=== PATIENT | female | born 1990 | race Two or more races ===

== ENCOUNTER 2021-08-05 09:40 | Observation (INO) | payer MEDICAID, OTHER ==
[2021-08-05 10:47] LABS: Basophils # (auto) 0.1 10 ^3/uL (0-0.2); Basophils % (auto) 1.2 % (0.0-2.0); Eosinophils # (auto) 0.3 10 ^3/uL (0-0.8); Hematocrit 34.2 % (36.0-46.0); Hemoglobin 11.7 g/dL (12.2-16.2); Lymphocytes # (auto) 1.8 10 ^3/uL (0.4-5.4); Lymphocytes % (auto) 20.9 % (10.0-50.0); Mean Corpuscular Hemoglobin 30.4 pg (28.0-32.0); Mean Corpuscular Hgb Conc. 34.3 g/dL (32.0-36.0); Mean Corpuscular Volume 88.6 fL (80.0-100.0); Monocytes # (auto) 0.9 10 ^3/uL (0-1.3); Monocytes % (auto) 10.9 % (0.0-12.0); Neutrophils # (auto) 5.4 10 ^3/uL (1.6-8.6); Nucleated Red Blood Cells % 0.1 %; Red Blood Cells 3.85 10^6/uL (4.0-5.20); White Blood Cell 8.4 10^3/uL (4.4-10.8)
[2021-08-05 10:56] LABS: Urine Bacteria FEW /hpf (None Seen); Urine Blood Negative /uL (Negative); Urine Specific Gravity 1.008 (1.001-1.035); Urine WBC 1 /hpf (0 - 5)
[2021-08-05 11:09] LABS: INR 0.94 (0.9-1.15); Partial Thromboplastin Time 24.7 sec (23.6-33.0)
[2021-08-05 11:15] LABS: Albumin 2.3 g/dL (3.4-5.0); Calcium 9.1 mg/dL (8.5-10.1); Potassium 3.9 mmol/L (3.5-5.1)
[2021-08-05 11:18] LABS: Alcohol, Urine < 3.0 mg/dL (0-10); Amphetamine Screen, Urine NEGATIVE (NEGATIVE); Barbiturate Scree,Urine NEGATIVE (NEGATIVE); Benzodiazephine Screen, Urine NEGATIVE (NEGATIVE); Cannabinoid Screen, Urine NEGATIVE (NEGATIVE); Cocaine Screen, Urine NEGATIVE (NEGATIVE); Opiate Scree,Urine NEGATIVE (NEGATIVE); Phencyclidine Screen, Urine NEGATIVE (NEGATIVE)
[2021-08-05 11:18] LABS: BUN/Creatinine Ratio 9.3; Bilirubin, Total 0.1 mg/dL (0.2-1.0); Total Protein 6.7 g/dL (6.4-8.2); Uric Acid 4.1 mg/dL (2.6-6.0)
[2021-08-05 11:20] LABS: Protein, Urine 10.9 mg/dL (0.0-11.9)
[2021-08-05] MEDS ORDERED: CHOL20007 PO (12:40)
[2021-08-05] MEDS ORDERED: ASPI-543 PO (12:40)
[2021-08-05] MEDS ORDERED: PREN-96 PO (12:40)
[2021-08-06 06:25] LABS: RPR Non Reactive (Non Reactive)
[2021-08-06 07:06] LABS: Rubella Antibodies, IgG 3.39 index (Immune >0.99)
== END 2021-08-05 12:52 | disposition home or self-care (01) ==
LOC: LDRP 09:40
PROVIDERS: ADMIT Obstetrics & Gynecology; ATTEND Obstetrics & Gynecology
DX: O13.3 Gestational [pregnancy-induced] hypertension without significant proteinuria, third trimester (principal); O26.893 Other specified pregnancy related conditions, third trimester; R20.2 Paresthesia of skin; O99.283 Endocrine, nutritional and metabolic diseases complicating pregnancy, third trimester; E05.90 Thyrotoxicosis, unspecified without thyrotoxic crisis or storm; Z3A.32 32 weeks gestation of pregnancy; Z79.899 Other long term (current) drug therapy
CPT/HCPCS: 36415; 59025; 80053; 80307; 81001; 81002; 82570; 84156; 84550; 85025; 85379; 85610; 85730; 86592; 86703; 86762; 86850; 86900; 86901; 87340; 94760; G0378

== ENCOUNTER 2021-08-19 10:53 | Observation (INO) | payer MEDICAID ==
[~2021-08-19] VITALS: Ht 160 cm; Wt 85.7 kg
[~2021-08-19 10:53] MED LIST: ASPI-543 PO; CHOL20007 PO; PREN-96 PO
[2021-08-19 11:47] LABS: Basophils # (auto) 0.1 10 ^3/uL (0-0.2); Basophils % (auto) 1.4 % (0.0-2.0); Eosinophils # (auto) 0.2 10 ^3/uL (0-0.8); Eosinophils % (auto) 2.1 % (0.0-7.0); Hematocrit 35.8 % (36.0-46.0); Hemoglobin 12.2 g/dL (12.2-16.2); Lymphocytes # (auto) 1.6 10 ^3/uL (0.4-5.4); Lymphocytes % (auto) 21.1 % (10.0-50.0); Mean Corpuscular Hemoglobin 30.8 pg (28.0-32.0); Mean Corpuscular Volume 90.5 fL (80.0-100.0); Monocytes # (auto) 0.8 10 ^3/uL (0-1.3); Monocytes % (auto) 11.1 % (0.0-12.0); Neutrophils # (auto) 4.9 10 ^3/uL (1.6-8.6); Neutrophils % (auto) 64.3 % (37.0-80.0); Red Blood Cells 3.95 10^6/uL (4.0-5.20); Red Cell Distribution Width 15.5 % (11.8-14.3); White Blood Cell 7.7 10^3/uL (4.4-10.8)
[2021-08-19 11:52] LABS: Urine Bacteria NONE SEEN /hpf (None Seen); Urine Blood Negative /uL (Negative); Urine Specific Gravity 1.011 (1.001-1.035); Urine WBC <1 /hpf (0 - 5)
[2021-08-19 11:59] LABS: Alcohol, Urine < 3.0 mg/dL (0-10); Amphetamine Screen, Urine NEGATIVE (NEGATIVE); Barbiturate Scree,Urine NEGATIVE (NEGATIVE); Benzodiazephine Screen, Urine NEGATIVE (NEGATIVE); Cannabinoid Screen, Urine NEGATIVE (NEGATIVE); Cocaine Screen, Urine NEGATIVE (NEGATIVE); Opiate Scree,Urine NEGATIVE (NEGATIVE); Phencyclidine Screen, Urine NEGATIVE (NEGATIVE); Protein, Urine 16.9 mg/dL (0.0-11.9)
[2021-08-19 12:01] LABS: INR 0.92 (0.9-1.15); Partial Thromboplastin Time 24.9 sec (23.6-33.0)
[2021-08-19 12:03] LABS: Albumin 2.3 g/dL (3.4-5.0); Calcium 8.3 mg/dL (8.5-10.1); Potassium 4.1 mmol/L (3.5-5.1)
[2021-08-19 12:07] LABS: BUN/Creatinine Ratio 12.5; Bilirubin, Total 0.2 mg/dL (0.2-1.0); Total Protein 6.9 g/dL (6.4-8.2)
[2021-08-19] MEDS ORDERED: BETAMETHASONE ACET (30mg/5ml) 5ml Vial 6mg/ml IM ONE (12:45)
[2021-08-19] MEDS ORDERED: LABETALOL HCL 200 MG TAB PO ONE (12:45)
[2021-08-19] MEDS: TERBUTALINE SULFATE 1 MG/ML 1ML VIAL SC SCH ×3 (13:23→14:17)
[2021-08-19] MEDS ORDERED: NIFEdipine 10 MG CAP PO ONE (14:45)
[2021-08-19] MEDS ORDERED: NIF10C PO (15:25)
[2021-08-19] MEDS ORDERED: LABE200T7 PO (15:25)
== END 2021-08-19 17:29 | disposition home or self-care (01) ==
LOC: LDRP 10:53
PROVIDERS: ADMIT Obstetrics & Gynecology; ATTEND Obstetrics & Gynecology
DX: O60.03 Preterm labor without delivery, third trimester (principal); O13.3 Gestational [pregnancy-induced] hypertension without significant proteinuria, third trimester; Z3A.34 34 weeks gestation of pregnancy; Z79.899 Other long term (current) drug therapy
CPT/HCPCS: 36415; 59025; 80053; 80307; 81001; 81002; 82570; 84156; 84550; 85025; 85610; 85730; 94760; 96372; G0378; J0702; J3105

== ENCOUNTER 2021-08-20 08:13 | Observation (INO) | payer MEDICAID ==
[~2021-08-20] VITALS: Ht 160 cm; Wt 81.6 kg
[~2021-08-20 08:13] MED LIST changes: +LABE200T7 PO; +NIF10C PO
[2021-08-20] MEDS ORDERED: BETAMETHASONE ACET (30mg/5ml) 5ml Vial 6mg/ml IM ONE (13:15)
== END 2021-08-20 14:45 | disposition home or self-care (01) ==
LOC: LDRP 13:08
PROVIDERS: ADMIT Obstetrics & Gynecology; ATTEND Obstetrics & Gynecology
DX: O60.03 Preterm labor without delivery, third trimester (principal); O26.893 Other specified pregnancy related conditions, third trimester; R03.0 Elevated blood-pressure reading, without diagnosis of hypertension; Z3A.35 35 weeks gestation of pregnancy
CPT/HCPCS: 59025; 81002; 94760; 96372; G0378

== ENCOUNTER 2021-08-24 07:53 | Observation (INO) | payer MEDICAID ==
[2021-08-24 15:15] LABS: Protein, Urine 10.6 mg/dL (0.0-11.9)
[2021-08-24 15:40] LABS: 24 Hr. Total Protein, Urine 503.5 mg/24 Hr (<149.1)
== END 2021-08-24 15:31 | disposition home or self-care (01) ==
LOC: LDRP 13:42
PROVIDERS: ADMIT Obstetrics & Gynecology; ATTEND Obstetrics & Gynecology
DX: O13.3 Gestational [pregnancy-induced] hypertension without significant proteinuria, third trimester (principal); O26.893 Other specified pregnancy related conditions, third trimester; R33.9 Retention of urine, unspecified; R60.0 Localized edema; Z3A.35 35 weeks gestation of pregnancy
CPT/HCPCS: 59025; 81002; 84156; 94760; G0378

== ENCOUNTER 2021-08-31 14:30 | Observation (INO) | payer MEDICAID ==
[~2021-08-31 14:30] MED LIST changes: -ASPI-543 PO
== END 2021-08-31 17:02 | disposition home or self-care (01) ==
LOC: LDRP 14:30
PROVIDERS: ADMIT Obstetrics & Gynecology; ATTEND Obstetrics & Gynecology
DX: O60.03 Preterm labor without delivery, third trimester (principal); O13.3 Gestational [pregnancy-induced] hypertension without significant proteinuria, third trimester; Z3A.36 36 weeks gestation of pregnancy
CPT/HCPCS: 59025; 76818; 81002; 94760; G0378

== ENCOUNTER 2021-09-03 07:08 | Observation (INO) | payer MEDICAID | END 2021-09-03 16:48 | disposition home or self-care (01) | LOC: LDRP 15:12 | PROVIDERS: ADMIT Obstetrics & Gynecology; ATTEND Obstetrics & Gynecology | DX: O13.3 Gestational [pregnancy-induced] hypertension without significant proteinuria, third trimester (principal); O60.03 Preterm labor without delivery, third trimester; O26.893 Other specified pregnancy related conditions, third trimester; R10.9 Unspecified abdominal pain; Z3A.37 37 weeks gestation of pregnancy | CPT/HCPCS: 59025; 81002; 94760; G0378 ==

== ENCOUNTER 2021-09-07 08:06 | Observation (INO) | payer MEDICAID ==
[2021-09-07 16:16] LABS: Basophils # (auto) 0.2 10 ^3/uL (0-0.2); Basophils % (auto) 2.1 % (0.0-2.0); Eosinophils # (auto) 0.2 10 ^3/uL (0-0.8); Eosinophils % (auto) 2.2 % (0.0-7.0); Hematocrit 38.4 % (36.0-46.0); Hemoglobin 13.1 g/dL (12.2-16.2); Lymphocytes # (auto) 1.8 10 ^3/uL (0.4-5.4); Lymphocytes % (auto) 23.4 % (10.0-50.0); Mean Corpuscular Hemoglobin 30.9 pg (28.0-32.0); Mean Corpuscular Hgb Conc. 34.2 g/dL (32.0-36.0); Mean Corpuscular Volume 90.3 fL (80.0-100.0); Monocytes # (auto) 0.5 10 ^3/uL (0-1.3); Monocytes % (auto) 6.9 % (0.0-12.0); Neutrophils % (auto) 65.4 % (37.0-80.0); Red Blood Cells 4.25 10^6/uL (4.0-5.20); White Blood Cell 7.6 10^3/uL (4.4-10.8)
[2021-09-07 16:31] LABS: INR 0.89 (0.9-1.15); Partial Thromboplastin Time 25.1 sec (23.6-33.0)
[2021-09-07 16:41] LABS: Albumin 2.4 g/dL (3.4-5.0); Calcium 8.7 mg/dL (8.5-10.1); Potassium 4.1 mmol/L (3.5-5.1)
[2021-09-07 16:45] LABS: BUN/Creatinine Ratio 14.5; Bilirubin, Total 0.2 mg/dL (0.2-1.0); Total Protein 7.2 g/dL (6.4-8.2); Uric Acid 4.1 mg/dL (2.6-6.0)
[2021-09-07 16:59] LABS: Protein, Urine 7.8 mg/dL (0.0-11.9)
== END 2021-09-07 16:41 | disposition home or self-care (01) ==
LOC: LDRP 14:03
PROVIDERS: ADMIT Obstetrics & Gynecology; ATTEND Obstetrics & Gynecology
DX: O60.03 Preterm labor without delivery, third trimester (principal); O13.3 Gestational [pregnancy-induced] hypertension without significant proteinuria, third trimester; Z3A.37 37 weeks gestation of pregnancy
CPT/HCPCS: 36415; 59025; 76818; 80053; 81002; 82570; 84156; 84550; 85025; 85610; 85730; 94760; G0378

== ENCOUNTER 2021-09-08 19:00 | Observation (INO) | payer MEDICAID ==
[~2021-09-08] VITALS: Ht 157.5 cm; Wt 81.6 kg
[2021-09-08 19:48] LABS: Urine Bacteria NONE SEEN /hpf (None Seen); Urine Blood Negative /uL (Negative); Urine Specific Gravity 1.013 (1.001-1.035); Urine WBC 1 /hpf (0 - 5)
[2021-09-08 20:09] LABS: Protein, Urine 32.8 mg/dL (0.0-11.9)
[2021-09-08 20:14] LABS: Protein, Urine 32.8 mg/dL (0.0-11.9)
[2021-09-08] MEDS ORDERED: LABETALOL HCL 200 MG TAB PO ONE (21:15)
[2021-09-08] MEDS ORDERED: hydrALAZINE HCL 20 MG/ML VL IV ONE (23:30)
[2021-09-08] MEDS ORDERED: hydrALAZINE HCL 20 MG/ML VL ONE (23:35)
[2021-09-09 00:46] LABS: Albumin 2.4 g/dL (3.4-5.0); BUN/Creatinine Ratio 12.3; Calcium 8.6 mg/dL (8.5-10.1); Potassium 3.9 mmol/L (3.5-5.1)
[2021-09-09 00:48] LABS: INR 0.9 (0.9-1.15); Partial Thromboplastin Time 25.3 sec (23.6-33.0)
[2021-09-09 00:49] LABS: Bilirubin, Total 0.2 mg/dL (0.2-1.0); Total Protein 6.9 g/dL (6.4-8.2)
[2021-09-09 01:03] LABS: Basophils # (auto) 0.1 10 ^3/uL (0-0.2); Basophils % (auto) 0.8 % (0.0-2.0); Eosinophils # (auto) 0.2 10 ^3/uL (0-0.8); Eosinophils % (auto) 2.5 % (0.0-7.0); Hematocrit 37.7 % (36.0-46.0); Hemoglobin 12.8 g/dL (12.2-16.2); Lymphocytes # (auto) 2.4 10 ^3/uL (0.4-5.4); Mean Corpuscular Hemoglobin 30.7 pg (28.0-32.0); Mean Corpuscular Volume 90.2 fL (80.0-100.0); Monocytes # (auto) 0.6 10 ^3/uL (0-1.3); Monocytes % (auto) 7.8 % (0.0-12.0); Neutrophils # (auto) 4.6 10 ^3/uL (1.6-8.6); Neutrophils % (auto) 57.9 % (37.0-80.0); Nucleated Red Blood Cells % 0.1 %; Red Blood Cells 4.18 10^6/uL (4.0-5.20); Red Cell Distribution Width 14.9 % (11.8-14.3); White Blood Cell 7.9 10^3/uL (4.4-10.8)
[2021-09-09 01:15] LABS: Uric Acid 4.1 mg/dL (2.6-6.0)
[2021-09-09] MEDS ORDERED: LABETALOL HCL 200 MG TAB PO SCH (09:00)
== END 2021-09-09 10:46 | disposition home or self-care (01) ==
LOC: LDRP 19:00
PROVIDERS: ADMIT Obstetrics & Gynecology; ATTEND Obstetrics & Gynecology
DX: O13.3 Gestational [pregnancy-induced] hypertension without significant proteinuria, third trimester (principal); Z3A.37 37 weeks gestation of pregnancy
CPT/HCPCS: 36415; 59025; 80053; 81001; 81002; 82570; 84156; 84550; 85025; 85610; 85730; 94760; 96374; G0378; J0360

== ENCOUNTER 2021-09-09 21:00 | Inpatient (IN) | payer MEDICAID ==
[~2021-09-09] VITALS: Ht 154.9 cm; Wt 74.8 kg
[2021-09-09] MEDS ORDERED: WITCH HAZEL-GLYCERIN PAD TOP PRN (22:45)
[2021-09-09] MEDS ORDERED: DERMOPLAST 60ML BOTTLE TOP PRN (22:45)
[2021-09-09] MEDS ORDERED: BUTORPHANOL TARTRATE 2 MG/1 ML VIAL IV PRN ×2 (22:45)
[2021-09-09] MEDS ORDERED: PHISODERM TOP SOLN 240ML BTL TOP PRN (22:45)
[2021-09-09] MEDS ORDERED: LIDOCAINE 2%HCL (LOCAL ANESTH.) INJ 10ml MDV IJ PRN (22:45)
[2021-09-09] MEDS ORDERED: PROMETHAZINE HCL 25 MG/ML 1ML IV PRN (22:45)
[2021-09-09 23:17] LABS: Basophils # (auto) 0.1 10 ^3/uL (0-0.2); Basophils % (auto) 0.8 % (0.0-2.0); Eosinophils # (auto) 0.2 10 ^3/uL (0-0.8); Eosinophils % (auto) 2.7 % (0.0-7.0); Hematocrit 34.1 % (36.0-46.0); Hemoglobin 11.9 g/dL (12.2-16.2); Lymphocytes # (auto) 2.1 10 ^3/uL (0.4-5.4); Lymphocytes % (auto) 28.2 % (10.0-50.0); Mean Corpuscular Hgb Conc. 34.8 g/dL (32.0-36.0); Monocytes # (auto) 0.7 10 ^3/uL (0-1.3); Monocytes % (auto) 8.9 % (0.0-12.0); Neutrophils # (auto) 4.5 10 ^3/uL (1.6-8.6); Neutrophils % (auto) 59.4 % (37.0-80.0); Nucleated Red Blood Cells % 0.1 %; Red Blood Cells 3.83 10^6/uL (4.0-5.20); Red Cell Distribution Width 15.2 % (11.8-14.3); White Blood Cell 7.6 10^3/uL (4.4-10.8)
[2021-09-09 23:37] LABS: INR 0.93 (0.9-1.15); Partial Thromboplastin Time 25.3 sec (23.6-33.0)
[2021-09-09 23:39] LABS: Albumin 2.4 g/dL (3.4-5.0); BUN/Creatinine Ratio 18.2; Calcium 8.4 mg/dL (8.5-10.1)
[2021-09-09 23:42] LABS: Bilirubin, Total 0.3 mg/dL (0.2-1.0); Total Protein 6.5 g/dL (6.4-8.2)
[2021-09-10] MEDS: miSOPROStol 50 MCG per PRE-CUT 1/2 TAB PO PRN ×4 (01:15→14:33)
[2021-09-10] MEDS: LACTATED RINGER'S 1,000 ML IV SCH ×3 (01:17→20:19)
[2021-09-10 04:48] LABS: Urine Bacteria NONE SEEN /hpf (None Seen); Urine Blood Negative /uL (Negative); Urine Specific Gravity 1.009 (1.001-1.035); Urine WBC <1 /hpf (0 - 5)
[2021-09-10 04:55] LABS: Amphetamine Screen, Urine NEGATIVE (NEGATIVE); Barbiturate Scree,Urine NEGATIVE (NEGATIVE); Benzodiazephine Screen, Urine NEGATIVE (NEGATIVE); Cannabinoid Screen, Urine NEGATIVE (NEGATIVE); Cocaine Screen, Urine NEGATIVE (NEGATIVE); Opiate Scree,Urine NEGATIVE (NEGATIVE); Phencyclidine Screen, Urine NEGATIVE (NEGATIVE)
[2021-09-10] MEDS: LABETALOL HCL 200 MG TAB PO SCH ×2 (07:18→19:27)
[2021-09-10] MEDS ORDERED: hydrALAZINE HCL 20 MG/ML VL IV PRN (11:30)
[2021-09-10] MEDS: hydrALAZINE HCL 20 MG/ML VL IV PRN (11:42)
[2021-09-11] MEDS: miSOPROStol 50 MCG per PRE-CUT 1/2 TAB PO PRN ×2 (02:23→22:25)
[2021-09-11] MEDS: LACTATED RINGER'S 1,000 ML IV SCH ×3 (06:21→22:45)
[2021-09-11 07:06] LABS: RPR Non Reactive (Non Reactive)
[2021-09-11] MEDS: LABETALOL HCL 200 MG TAB PO SCH ×2 (08:26→20:16)
[2021-09-11 08:53] LABS: Basophils # (auto) 0.1 10 ^3/uL (0-0.2); Basophils % (auto) 0.8 % (0.0-2.0); Eosinophils # (auto) 0.2 10 ^3/uL (0-0.8); Eosinophils % (auto) 2.7 % (0.0-7.0); Hematocrit 35.4 % (36.0-46.0); Hemoglobin 12.2 g/dL (12.2-16.2); Lymphocytes # (auto) 2.2 10 ^3/uL (0.4-5.4); Lymphocytes % (auto) 27.2 % (10.0-50.0); Mean Corpuscular Hgb Conc. 34.3 g/dL (32.0-36.0); Mean Corpuscular Volume 90.3 fL (80.0-100.0); Monocytes # (auto) 0.7 10 ^3/uL (0-1.3); Monocytes % (auto) 8.9 % (0.0-12.0); Neutrophils # (auto) 4.8 10 ^3/uL (1.6-8.6); Neutrophils % (auto) 60.4 % (37.0-80.0); Nucleated Red Blood Cells % 0.1 %; Red Blood Cells 3.92 10^6/uL (4.0-5.20); Red Cell Distribution Width 15.1 % (11.8-14.3)
[2021-09-11 09:09] LABS: Calcium 8.5 mg/dL (8.5-10.1); Potassium 3.8 mmol/L (3.5-5.1)
[2021-09-11 09:17] LABS: Albumin 2.2 g/dL (3.4-5.0); BUN/Creatinine Ratio 15.3; Bilirubin, Total 0.4 mg/dL (0.2-1.0); Total Protein 6.3 g/dL (6.4-8.2); Uric Acid 5.4 mg/dL (2.6-6.0)
[2021-09-11 10:01] LABS: Urine Bacteria NONE SEEN /hpf (None Seen); Urine Blood Negative /uL (Negative); Urine WBC 3 /hpf (0 - 5)
[2021-09-11 10:07] LABS: INR 0.94 (0.9-1.15); Partial Thromboplastin Time 25.7 sec (23.6-33.0)
[2021-09-11 10:16] LABS: Protein, Urine 24.6 mg/dL (0.0-11.9)
[2021-09-11] MEDS: hydrALAZINE HCL 20 MG/ML VL IV PRN (23:34)
[2021-09-12] MEDS ORDERED: ACETAMINOPHEN 325 MG TAB PO PRN
[2021-09-12] MEDS: miSOPROStol 50 MCG per PRE-CUT 1/2 TAB PO PRN ×2 (02:56→07:03)
[2021-09-12] MEDS: LACTATED RINGER'S 1,000 ML IV SCH ×4 (06:27→17:57)
[2021-09-12] MEDS: LABETALOL HCL 200 MG TAB PO SCH ×2 (07:49→20:24)
[2021-09-12] MEDS ORDERED: DINOPROSTONE 10MG VAG SUPP PV ONE (10:45)
[2021-09-13] MEDS: LABETALOL HCL 200 MG TAB PO SCH (08:42)
[2021-09-13] MEDS ORDERED: LACT. RINGERS/OXYTOCIN 20UNITS 1,000 ML IV SCH (09:00)
[2021-09-13] MEDS ORDERED: TERBUTALINE SULFATE 1 MG/ML 1ML VIAL SC PRN (09:00)
[2021-09-13] MEDS: LACTATED RINGER'S 1,000 ML IV SCH ×3 (11:03→22:45)
[2021-09-13] MEDS ORDERED: LORazepam 2MG/ML-1ML VIAL IV ONE (12:30)
[2021-09-13] MEDS ORDERED: MAGNESIUM SULFATE 40MG/ML 1,000 ML IV SCH (12:30)
[2021-09-13] MEDS ORDERED: MAGNESIUM SULFATE 100 ML IV ONE (12:30)
[2021-09-13] MEDS ORDERED: TETRACAINE 1% INJ 2 ML VIAL IJ ONE (15:29)
[2021-09-13] MEDS ORDERED: SUCCINYLCHOLINE CHLORIDE 20 MG/ML 10ML VIAL IV ONE (15:29)
[2021-09-13] MEDS ORDERED: MIDAZOLAM HCL 2MG/2ML 2ml VIAL (1mg/ml) IV ONE (15:30)
[2021-09-13] MEDS ORDERED: SODIUM CHLORIDE LOCK 10 ML ONE (15:31)
[2021-09-13] MEDS ORDERED: ONDANSETRON HCL 4 MG/2 ML VIAL ONE (15:31)
[2021-09-13] MEDS ORDERED: oxyTOCIN 10 UNIT/ML 10ML VIAL ONE (15:31)
[2021-09-13] MEDS ORDERED: MORPHINE SULF PF 5 MG/10 ML VIAL ONE (15:31)
[2021-09-13] MEDS ORDERED: DexAMETHasone SOD PHOS 10MG/1ML VIAL INJ ONE (15:31)
[2021-09-13] MEDS ORDERED: ePHEDrine SULFATE 50 MG/ML AMP ONE (15:31)
[2021-09-13] MEDS ORDERED: fentaNYL CITRATE 100 MCG/2 ML VL ONE (15:31)
[2021-09-13] MEDS ORDERED: MIDAZOLAM HCL 2MG/2ML 2ml VIAL (1mg/ml) ONE (15:31)
[2021-09-13] MEDS ORDERED: ceFAZolin 1GM/50ML 50 ML IV ONE ×3 (15:41→17:15)
[2021-09-13] MEDS ORDERED: MORPHINE SULFATE 4 MG/ML SYR/VIAL IV PRN (16:45)
[2021-09-13] MEDS ORDERED: diphenhdrAMINE HCL 50 MG/1 ML VL IV PRN (16:45)
[2021-09-13] MEDS ORDERED: METOCLOPRAMIDE HCL 5MG/ml INJ 2ml VIAL IV PRN (16:45)
[2021-09-13] MEDS ORDERED: NALOXONE HCL 0.4 MG/ML VIAL IV PRN (16:45)
[2021-09-13] MEDS ORDERED: HYDROmorphone HCL 2 MG/ML VL/or syr IV PRN (16:45)
[2021-09-13] MEDS ORDERED: ONDANSETRON HCL 4 MG/2 ML VIAL IV PRN (17:15)
[2021-09-13] MEDS ORDERED: ePHEDrine SULFATE 50 MG/ML AMP IV PRN (17:15)
[2021-09-13] MEDS ORDERED: KETOROLAC TROMETH 30 MG/ML 1ML VIAL IV PRN (17:15)
[2021-09-13] MEDS ORDERED: GUM (CHEWING) 1 GUM CHEW CHEW ONE (17:15)
[2021-09-13] MEDS: MAGNESIUM SULFATE 40MG/ML 1,000 ML IV SCH (20:29)
[2021-09-13] MEDS: DOCUSATE SOD 100 MG CAP PO SCH (22:55)
[2021-09-13 23:00] VITALS: BP 141/67
[2021-09-14] VITALS (12 sets, daily range): BP systolic 119–141; BP diastolic 73–90
[2021-09-14] MEDS: IBUPROFEN 600 MG TAB PO SCH ×3 (05:48→17:40)
[2021-09-14] MEDS ORDERED: HYDROcodone-ACET 5/325MG TAB PO PRN (06:00)
[2021-09-14] MEDS ORDERED: HYDR-4902 PO (06:14)
[2021-09-14] MEDS ORDERED: DOCU100C10 PO (06:14)
[2021-09-14] MEDS ORDERED: IBU600T PO (06:14)
[2021-09-14] MEDS: LACTATED RINGER'S 1,000 ML IV SCH ×2 (06:45→14:45)
[2021-09-14 07:13] LABS: Basophils # (auto) 0 10 ^3/uL (0-0.2); Basophils % (auto) 0.2 % (0.0-2.0); Eosinophils # (auto) 0 10 ^3/uL (0-0.8); Hemoglobin 11.6 g/dL (12.2-16.2); Lymphocytes # (auto) 1.4 10 ^3/uL (0.4-5.4); Lymphocytes % (auto) 11.6 % (10.0-50.0); Mean Corpuscular Hemoglobin 30.6 pg (28.0-32.0); Mean Corpuscular Volume 89.9 fL (80.0-100.0); Monocytes % (auto) 8.3 % (0.0-12.0); Neutrophils # (auto) 9.6 10 ^3/uL (1.6-8.6); Neutrophils % (auto) 79.9 % (37.0-80.0); Red Blood Cells 3.78 10^6/uL (4.0-5.20); Red Cell Distribution Width 14.5 % (11.8-14.3)
[2021-09-14] MEDS: LABETALOL HCL 200 MG TAB PO SCH ×2 (08:59→19:50)
[2021-09-14] MEDS: MAGNESIUM SULFATE 40MG/ML 1,000 ML IV SCH (16:15)
[2021-09-14] MEDS: DOCUSATE SOD 100 MG CAP PO SCH (22:03)
[2021-09-15] MEDS: IBUPROFEN 600 MG TAB PO SCH ×4 (00:12→18:06)
[2021-09-15 03:17] VITALS: BP 139/85
[2021-09-15 07:30] VITALS: BP_SYST 153; BP_DIAS 104; BP_DIAS 4
[2021-09-15] MEDS: LABETALOL HCL 200 MG TAB PO SCH ×2 (08:01→19:30)
[2021-09-15 11:19] VITALS: BP 125/82
[2021-09-15 14:51] VITALS: BP 127/90
[2021-09-15 19:30] VITALS: BP 122/81
[2021-09-15] MEDS: DOCUSATE SOD 100 MG CAP PO SCH (22:00)
[2021-09-15 23:00] VITALS: BP 147/91
[2021-09-16] VITALS (9 sets, daily range): BP systolic 135–157; BP diastolic 81–101
[2021-09-16] MEDS: SIMETHICONE 80 MG CHEWABLE TABLET PO PRN (01:50)
[2021-09-16] MEDS: LABETALOL HCL 200 MG TAB PO SCH ×2 (01:52→14:00)
[2021-09-16] MEDS: HYDROcodone-ACET 5/325MG TAB PO PRN ×2 (07:58→16:10)
[2021-09-16] MEDS: IBUPROFEN 600 MG TAB PO SCH ×4 (08:00→17:57)
[2021-09-16] MEDS ORDERED: LABE200T32 PO (10:21)
[2021-09-16] MEDS: hydrALAZINE HCL 20 MG/ML VL IV PRN ×3 (21:50→23:47)
[2021-09-16] MEDS: DOCUSATE SOD 100 MG CAP PO SCH (22:26)
[2021-09-17] VITALS (7 sets, daily range): BP systolic 132–155; BP diastolic 86–104
[2021-09-17] MEDS: IBUPROFEN 600 MG TAB PO SCH ×5 (00:03→23:36)
[2021-09-17] MEDS ORDERED: LABETALOL HCL 200 MG TAB PO SCH (02:00)
[2021-09-17] MEDS: SIMETHICONE 80 MG CHEWABLE TABLET PO PRN (06:29)
[2021-09-17] MEDS: hydrALAZINE HCL 20 MG/ML VL IV PRN (08:23)
[2021-09-17] MEDS ORDERED: cloNIDine HCL 0.1 MG TAB PO PRN (09:45)
[2021-09-17] MEDS ORDERED: NIFEdipine ER 30 MG TAB PO SCH (10:00)
[2021-09-17] MEDS ORDERED: amLODIPine BESYLATE 5 MG TAB PO SCH (10:00)
[2021-09-17] MEDS ORDERED: hydrALAZINE HCL 25 MG TAB PO SCH (14:00)
[2021-09-17] MEDS: LABETALOL HCL 200 MG TAB PO SCH ×2 (14:01→23:46)
[2021-09-17] MEDS: HYDROcodone-ACET 5/325MG TAB PO PRN (21:57)
[2021-09-17] MEDS: DOCUSATE SOD 100 MG CAP PO SCH (21:57)
[2021-09-17] MEDS: NIFEdipine ER 30 MG TAB PO SCH (21:57)
[2021-09-18 00:48] VITALS: BP 132/84
[2021-09-18 03:30] VITALS: BP 132/80
[2021-09-18] MEDS: IBUPROFEN 600 MG TAB PO SCH (05:37)
[2021-09-18 08:00] VITALS: BP 132/80
[2021-09-18] MEDS: NIFEdipine ER 30 MG TAB PO SCH (09:32)
[2021-09-18] MEDS ORDERED: methIMAzole 5 MG TAB PO SCH ×2 (10:00)
[2021-09-18] MEDS: LABETALOL HCL 200 MG TAB PO SCH (11:37)
== END 2021-09-18 11:50 | disposition home or self-care (01) | DRG 540 ==
LOC: LDRP 21:00 → OBSVTOIN 22:00
PROVIDERS: ADMIT Obstetrics & Gynecology; ATTEND Obstetrics & Gynecology
PROC: 3E0P7VZ Introduction of Hormone into Female Reproductive, Via Natural or Artificial Opening (ICD-10-PCS; 2021-09-10)
PROC: 3E0DXGC Introduction of Other Therapeutic Substance into Mouth and Pharynx, External Approach (ICD-10-PCS; 2021-09-10)
PROC: 10D00Z1 Extraction of Products of Conception, Low, Open Approach (ICD-10-PCS; principal; 2021-09-13 15:55)
DX: O14.94 Unspecified pre-eclampsia, complicating childbirth (principal); O61.9 Failed induction of labor, unspecified; O13.4 Gestational [pregnancy-induced] hypertension without significant proteinuria, complicating childbirth; O77.0 Labor and delivery complicated by meconium in amniotic fluid; O99.02 Anemia complicating childbirth; O76 Abnormality in fetal heart rate and rhythm complicating labor and delivery; Z20.822 Contact with and (suspected) exposure to COVID-19; Z3A.38 38 weeks gestation of pregnancy; Z37.0 Single live birth
CPT/HCPCS: 36415; 59025; 80053; 80307; 81001; 81002; 82570; 82948; 83735; 84156; 84443; 84550; 85025; 85384; 85610; 85730; 86592; 86850; 86900; 86901; 94760; 94762; 96360; 96361; 96365; 96366; 96374; 96375; G0378; J0330; J0690; J1100; J2001; J2250; J2405; J2590

== ENCOUNTER 2022-07-13 17:45 | Emergency (ER) | payer MEDICAID ==
[~2022-07-13] VITALS: Ht 154.9 cm; Wt 75.0 kg
[~2022-07-13 17:45] MED LIST changes: +DOCU100C10 PO; +HYDR-4902 PO; +IBU600T PO; +LABE200T32 PO; -LABE200T7 PO; -NIF10C PO
[2022-07-13 18:15] VITALS: BP 137/89
[2022-07-13] MEDS ORDERED: DexAMETHasone SOD PHOS 10MG/1ML VIAL INJ IM ONE ×2 (18:30→22:15)
[2022-07-13] MEDS ORDERED: PENICILLIN G BENZ 1200000 UNITS/2 ML SYRG IM ONE ×2 (18:30→22:15)
[2022-07-13] MEDS ORDERED: IBUP800T26 PO (21:35)
== END 2022-07-14 00:26 | disposition home or self-care (01) ==
LOC: ER 17:45
DX: J02.0 Streptococcal pharyngitis (principal); E66.9 Obesity, unspecified; Z68.31 Body mass index [BMI] 31.0-31.9, adult
CPT/HCPCS: 96372; 99284; J0561; J1100

== ENCOUNTER 2025-03-02 07:18 | Emergency (ER) | payer MEDICAID ==
[~2025-03-02] VITALS: Ht 157.5 cm; Wt 75.2 kg
[~2025-03-02 07:18] MED LIST changes: +DOCU-265 PO; -DOCU100C10 PO; +IBUP-1455 PO; -LABE200T32 PO; +LABE200T9 PO
--- NOTE | 2025-03-02 07:30 | ED.PDOC ---
HPI Comments 34 y/o F, presents to the ED for CC of chest pain. Patient states, she has been experiencing left-sided non-radiating chest pain onset, yesterday (03/01/25). Patient relays, to have associated shortness of breath upon inspiration. Patient denies nausea, vomiting, dizziness, or headache. No other symptoms or modifying factors are present at this time. Chief Complaint: Chest Pain Time Seen by MD: 07:30 Reviewed Notes: Nurses Notes, Medications, Allergies Allergies: Coded Allergies: NO KNOWN ALLERGIES (Unverified , 08/05/21) Home Meds Active Scripts Ibuprofen Micronized (MOTRIN TABLET) 600 Mg Tb, 600 MG PO TID PRN for 3 Days, #9 TAB *Black box warning-NSAIDS can increase risk of [place] & hypertension, GI irritation, ulceration, bleed, perferation. Do not use post cardiac surgery. Use short duration/lowest effective dose. Prov:SYBIL JIMENEZ MD 03/02/25 Ibuprofen Micronized (Ibuprofen) 800 Mg Tab, 800 MG PO Q8HP PRN, #20 TAB Prov:MONIQUE GALE 07/13/22 Ibuprofen Micronized (MOTRIN TABLET) 600 Mg Tb, 600 MG PO Q6HR PRN, #20 TAB Prov:BLAYNE DALE DO 09/14/21 Hydrocodone-Acetaminophen (Hydrocodone Bitartrate/AC 5-325 mg) 1 Tab Tab, 1 TAB PO Q6HPRN PRN, #15 TAB Prov:BLAYNE DALE DO 09/14/21 Docusate Sodium (Docusate Sodium) 100 Mg Cap, 100 MG PO HS, #30 CAP Prov:BLAYNE DALE DO 09/14/21 Reported Medications Labetalol HCl (Labetalol Hydrochloride) 200 Mg Tab, 200 MG PO Q12HR, #60 TAB 09/16/21 Vit W/ Ferrous Fumara ( One Daily) Daily Tab, 1 TAB PO DAILY, #90 TAB 3 Refills 08/05/21 Cholecalciferol (VITAMIN D3) 2,000 Unit Tab, 1 TAB PO DAILY, #30 TAB 5 Refills 08/05/21 Information Source: Patient Mode of Arrival: Ambulatory Severity: Moderate Timing: Days Duration: Since onset Prehospital treatment: None Location: Chest (L) Radiation: No Radiation Onset: At Rest Cardiac Risk Factors: None PE Risk Factors: None History of: None Modifying Factors: Nothing Associated Signs and Symptoms: SOB Past Medical History PAST MEDICAL HISTORY: Denies Surgical History: HAND UPPER AND BOTTOM LACER History: No Pertinent HAND UPPER AND BOTTOM LACER History Family History Family History: Reviewed,noncontributory to illness, No family hx of Cancer, No family hx of DM, No family hx of Heart nemo, No family hx of HTN, No family hx ofKidney nemo, No family hx of Liver nemo, No family hx of Lung nemo, No family hx of Stroke Social History Smoker: Non-Smoker Alcohol: Denies ETOH Use Drugs: Denies Drug Use Lives In: Home Constitutional: denies: chills, diaphoresis, fatigue, fever, malaise, sweats, w eakness, others EENTM: denies: blurred vision, double vision, ear bleeding, ear discharge, ear drainage, ear pain, ear ringing, eye pain, eye redness, hearing loss, mouth pain, mouth swelling, nasal discharge, nose bleeding, nose congestion, nose pain, photophobia, tearing, throat pain, throat swelling, voice changes, others Respiratory: reports: shortness of breath; denies: cough, hemoptysis, orthopnea, SOB at rest, SOB with excertion, stridor, wheezing, others Cardiovascular: reports: chest pain; denies: dizzy spells, diaphoresis, Dyspnea on exertion, edema, irregular heart beat, left arm pain, lightheadedness, palpitations, PND, syncope, others Gastrointestinal: denies: abdomen distended, abdominal pain, blood streaked bowels, constipated, diarrhea, dysphagia, difficulty swallowing, hematemesis, melena, nausea, poor appetite, poor fluid intake, rectal bleeding, rectal pain, vomiting, others Genitourinary: denies: abnormal vagina bleeding, burning, dyspareunia, dysuria, flank pain, frequency, hematuria, incontinence, pain, , vagina discharge, urgency, others Neurological: denies: dizziness, fainting, headache, left sided numbness, left sided weakness, numbness, paresthesia, pre-existing deficit, right sided numbness, right sided weakness, seizure, speech problems, tingling, tremors, weakness, others Musculoskeletal: denies: back pain, gout, joint pain, joint swelling, muscle pain, muscle stiffness, neck pain, others Integumetry: denies: bruises, change in color, change in hair/nails, dryness, laceration, lesions, lumps, rash, wounds, others Allergic/Immunocompromised: denies: Difficulty Healing, Frequent Infections, Hives, Itching, others Hematologic/Lymphatic: denies: anemia, blood clots, easy bleeding, easy bruising, swollen glands, others Endocrine: denies: excessive hunger, excessive sweating, excessive thirst, excessive urination, flushing, intolerance to cold, intolerance to heat, unexplained weight gain, unexplained weight loss, others Psychiatric: denies: anxiety, bipolar disorder, depression, hopeless, panic disorder, schizophrenia, sleepless, suicidal, others All Other Systems: Reviewed and Negative Physical Exam General Appearance: Moderate Distress HEENT: Normal ENT Inspection, Pharynx Normal, TMs Normal Neck: Full Range of Motion, Non-Tender, Normal, Normal Inspection Respiratory: Chest Non-Tender, Lungs Clear, No Accessory Muscle Use, No Respiratory Distress, Normal Breath Sounds Cardiovascular: No Edema, No JVD, No Murmur, No Gallop, Normal Peripheral Pulses, Regular Rate/Rhythm Breast Exam: Deferred Gastrointestinal: No Organomegaly, Non Tender, No Pulsatile Mass, Normal Bowel Sounds, Soft Genitalia: Deferred Pelvic: Deferred Rectal: Deferred Extremities: No calf tenderness, Normal capillary refill, Normal inspection, Normal range of motion, Non-tender, No pedal edema Musculoskeletal : Apperance: Normal Neurologic: Alert, territory account representative II-XII nml as Tested, No Motor Deficits, Normal Affect, Normal Mood, No Sensory Deficits Cerebellar Function: Normal Reflexes: Normal Skin: Dry, Normal Color, Warm Peripheral Pulses: 3+ Radial (R), 3+ Radial (L) Lymphatic: No Adenopathy EKG EKG : Pulse Rate (adult): 79 [place]: Normal Cardiac Rhythm: NSR Block: None Hypertrophy: None ST: Normal Was a procedure done? Was a procedure done?: No CP Differential Dx Differential Diagnosis: A-fib, A-Flutter, Angina, Anxiety / Panic Attack, Atrial Dysrhythmia, Electrolyte Disorder X-Ray, Labs, Meds, VS Vital Signs Date Time Temp Pulse Resp B/P (MAP) Pulse Ox O2 Delivery O2 Flow Rate FiO2 03/02/25 11:09 69 16 99 Room Air 03/02/25 11:09 98.7 69 16 120/80 (93) 99 98.7 03/02/25 08:39 68 03/02/25 07:51 79 03/02/25 07:27 79 03/02/25 07:18 98.1 79 18 138/98 98 98.1 Lab Test 03/02/25 08:52 03/02/25 07:52 Range/Units Troponin I High Sensitivity 3 L 3 L </=34 ng/L White Blood Count 6.9 4.4-10.8 10^3/uL Red Blood Count 4.98 4.0-5.20 10^6/uL Hemoglobin 14.8 12.2-16.2 g/dL Hematocrit 43.5 36.0-46.0 % Mean Corpuscular Volume 87.2 80.0-100.0 fL Mean Corpuscular Hemoglobin 29.7 28.0-32.0 pg Mean Corpuscular Hemoglobin Concent 34.0 32.0-36.0 g/dL Red Cell Distribution Width 13.9 11.8-14.3 % Platelet Count 327 140-450 10^3/uL Mean Platelet Volume 8.5 6.9-10.8 fL Neutrophils (%) (Auto) 49.0 37.0-80.0 % Lymphocytes (%) (Auto) 37.5 10.0-50.0 % Monocytes (%) (Auto) 8.5 0.0-12.0 % Eosinophils (%) (Auto) 3.6 0.0-7.0 % Basophils (%) (Auto) 1.4 0.0-2.0 % Neutrophils # (Auto) 3.4 1.6-8.6 10 ^3/uL Lymphocytes # (Auto) 2.6 0.4-5.4 10 ^3/uL Monocytes # (Auto) 0.6 0-1.3 10 ^3/uL Eosinophils # (Auto) 0.2 0-0.8 10 ^3/uL Basophils # (Auto) 0.1 0-0.2 10 ^3/uL Nucleated Red Blood Cells 0.0 % Sodium Level 139 136-145 mmol/L Potassium Level 4.1 3.5-5.1 mmol/L Chloride Level 107 98-107 mmol/L Carbon Dioxide Level 24 20-31 mmol/L Anion Gap 8 5-15 Blood Urea Nitrogen 9 9-23 mg/dL Creatinine 0.74 0.550-1.02 mg/dL Glomerular Filtration Rate Calc 110 >90 mL/min BUN/Creatinine Ratio 12.2 10.0-20.0 Serum Glucose 91 74-106 mg/dL Calcium Level 9.1 8.7-10.4 mg/dL Patient alert. Came in for chest pain. No sign of distress. Vitals stable. Answering all questions. Saturation pristine on room air. Heart rate within normal limits. EKG reviewed does not show any acute changes. No leg swelling. No calf tenderness. No shortness a breath. Explained to the patient. Was told to follow up with her primary care physician. Was told to come back if there is any problem. Time of 1ST Reevaluation: 08:00 Reevaluation 1ST: Improved Patient Education/Counseling: Diagnosis, Treatment, Prognosis, Need For Follow Up Family Education/Counseling: No Family Present SEPSIS Sepsis Screen Date sepsis recognized/suspect: Mar 02, 2025 Time Sepsis recognized/suspect: 717 Recent Procedure: No On Antibiotic Therapy: No Respiratory Rate >20: No Heart Rate >90: No Temp<36 C (96.8 F) or >38.3 C: No SBP <90 or MAP <65 mmHG: No New Acute Mental Status Change: No Is the patient on CPAP, BIPAP,: No Physician Orders Electrocardigram (03/02/25 08:21) Electrocardigram (03/02/25 10:21) Vital Signs Date Time Temp Pulse Resp B/P (MAP) Pulse Ox O2 Delivery O2 Flow Rate FiO2 03/02/25 11:09 69 16 99 Room Air 03/02/25 11:09 98.7 69 16 120/80 (93) 99 98.7 03/02/25 08:39 68 03/02/25 07:51 79 03/02/25 07:27 79 03/02/25 07:18 98.1 79 18 138/98 98 98.1 Laboratory Tests Test 03/02/25 07:52 White Blood Count 6.9 10^3/uL (4.4-10.8) Departure 1 Departure Time of Disposition: 08:07 Impression: Primary Impression: Musculoskeletal chest pain Disposition: HOME / SELF CARE / HOMELESS Condition: Good e-Prescriptions Ibuprofen Micronized (MOTRIN TABLET) 600 Mg Tb 600 MG PO TID PRN for 3 Days, #9 TAB *Black box warning-NSAIDS can increase risk of [place] & hypertension, GI irritation, ulceration, bleed, perferation. Do not use post cardiac surgery. Use short duration/lowest effective dose. Prov: SYBIL JIMENEZ MD 03/02/25 Discharged With: Self Critical Care Note Critical Care Time?: No Stability Stability form required: No Heart Score Heart Score: Heart Score Response (Comments) Value History Slightly Suspicious 0 EKG Normal 0 Age <45 0 Risk Factors No known risk factors 0 Troponin Normal limit 0 Total 0 I personally scribed for SYBIL JIMENZE MD ([email or web address]) on 03/02/25 at 07:30. Electronically submitted by Gwen Walter ([email or web address]). I personally scribed for SYBIL JIMENEZ MD ([email or web address]) on 03/02/25 at 07:51. Electronically submitted by Gwen Walter ([email or web address]). I personally scribed for SYBIL JIMENEZ MD ([email or web address]) on 03/02/25 at 07:51. Electronically submitted by Gwen Walter ([email or web address]). SYBIL JIMENEZ MD Mar 02, 2025 07:30
[2025-03-02 08:08] LABS: Hematocrit 43.5 % (36.0-46.0); Hemoglobin 14.8 g/dL (12.2-16.2); Mean Corpuscular Hemoglobin 29.7 pg (28.0-32.0); Mean Corpuscular Volume 87.2 fL (80.0-100.0); Nucleated Red Blood Cells % 0.0 %
[2025-03-02] MEDS ORDERED: IBU600T PO (08:08)
[2025-03-02 08:17] LABS: Chloride 107 mmol/L (98-107); Potassium 4.1 mmol/L (3.5-5.1); Sodium 139 mmol/L (136-145)
[2025-03-02 08:18] LABS: Anion Gap 8 (5-15); Calcium 9.1 mg/dL (8.7-10.4); Carbon Dioxide 24 mmol/L (20-31)
[2025-03-02 08:23] LABS: BUN/Creatinine Ratio 12.2 (10.0-20.0); Blood Urea Nitrogen 9 mg/dL (9-23); Glucose 91 mg/dL (74-106)
--- NOTE | 2025-03-02 08:40 | ECG ---
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
[2025-03-02 11:09] VITALS: BP 120/80; PULSE 69; RESP 16; TEMP 98.7; O2SAT 99
--- NOTE | 2025-03-03 07:23 | ECG ---
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
== END 2025-03-02 11:12 | disposition home or self-care (01) ==
LOC: ER 07:18
DX: R07.89 Other chest pain (principal); Z79.899 Other long term (current) drug therapy
CPT/HCPCS: 36415; 80048; 84484; 85025; 93005